=== PATIENT | male | born 2000 ===

== ENCOUNTER 2019-06-15 14:14 | Emergency (ER) | payer OTHER ==
--- NOTE | 2019-06-15 15:35 | UC ---
Lower Extremity/Ankle HPI - HPI Summary HPI Summary: Patient is a 18-year-old male presenting with right ankle pain after he states he stepped wrong and rolled and a pickup soccer game last night. Patient states he iced and applied an icy hot patch but the pain is not improved. States he has been walking on it which has also worsened pain. Notes swelling and minimal bruising. Notes tingling in his toes. Denies radiating pain. Denies pain at rest. Denies decreased range of motion and strength. Patient states he has sprained his ankle numerous times in the past. - History of Current Complaint Chief Complaint: UCLowerExtremity Stated Complaint: ANKLE INJURY Hx Obtained From: Patient Onset/Duration: Sudden Onset Severity Currently: Moderate Pain Intensity: 5 - Allergies/Home Medications Allergies/Adverse Reactions: Allergies Allergy/AdvReac Type Severity Reaction Status Date / Time No Known Allergies Allergy Verified 06/15/19 14:58 Home Medications: Home Medications Ibuprofen TAB* [Motrin TAB* 800 MG] 800 mg PO PRN 06/15/19 [History] Muscle Relaxer* PRN 06/15/19 [History] PMH/Surg Hx/FS Hx/Imm Hx Previously Healthy: Yes - Surgical History Surgical History: None - Family History Known Family History: Positive: Non-Contributory - Social History Alcohol Use: None Substance Use Type: None Smoking Status (MU): Never Smoked Tobacco Review of Systems All Other Systems Reviewed And Are Negative: No Skin: Positive: Bruising Respiratory: Positive: Negative Cardiovascular: Positive: Negative Gastrointestinal: Positive: Negative Neurovascular: Positive: Negative Musculoskeletal: Positive: Arthralgia, Edema. Negative: Calf Tenderness, Decreased ROM, Myalgia Neurological: Positive: Paresthesia. Negative: Numbness Physical Exam Triage Information Reviewed: Yes Appearance: Well-Appearing, No Pain Distress, Well-Nourished Vital Signs: Initial Vital Signs Temp 98.5 F 06/15/19 14:53 Pulse 88 06/15/19 14:53 Resp 16 06/15/19 14:53 BP 162/105 06/15/19 14:53 Pulse Ox 100 06/15/19 14:53 Vital Signs Reviewed: Yes Eyes: Positive: Conjunctiva Clear ENT: Positive: Hearing grossly normal Neck: Positive: Supple Respiratory: Positive: No respiratory distress Cardiovascular: Positive: Pulses Normal - Normal pedal pulses bilaterally, Brisk Capillary Refill. Negative: Distal Pulses Weak, Distal Pulses Absent Musculoskeletal Exam: Normal Musculoskeletal: Positive: Strength Intact, ROM Intact, Edema @ - Anterolateral right ankle Neurological Exam: Other - Sensation grossly intact Neurological: Positive: Alert Psychological: Positive: Age Appropriate Behavior Skin Exam: Normal - Anterolateral ecchymosis of right ankle Lower Extremity Course/Dx - Course Course Of Treatment: Patient declined ankle x-ray and agreed to continue the symptomatic treatment and follow up with pain persists. Instructed to go to ED if pain worsens or if he experiences the foot going cold and numb or is unable to bear weight. He received ice and an Krunal wrap here. Patient voiced understanding and agreed with treatment plan. - Differential Dx/Diagnosis Provider Diagnosis: Right ankle sprain Discharge ED - Sign-Out/Discharge Documenting (check all that apply): Patient Departure All imaging exams completed and their final reports reviewed: No Studies - Discharge Plan Condition: Stable Disposition: HOME Patient Education Materials: Ankle Sprain (ED) Referrals: Adriel Langford MD [Medical Doctor] - If Needed Additional Instructions: As discussed, it is likely your ankle is sprained. Rest, ice, elevate, and use compression with an krunal wrap to help relieve ankle pain. You may also use over the counter pain medications as directed for relief of pain. If pain does not begin to resolve within 1 week, follow up with orthopedics as listed below. Return or go to the emergency room if pain worsens, the foot becomes cold and numb, or you are not able to bear weight. - Billing Disposition and Condition Condition: STABLE Disposition: Home
== END 2019-06-15 15:45 | disposition home or self-care (01) ==
LOC: UCEAST 14:14
DX: S93.491A Sprain of other ligament of right ankle, initial encounter (principal); X50.9XXA Other and unspecified overexertion or strenuous movements or postures, initial encounter; Y93.66 Activity, soccer; Y92.9 Unspecified place or not applicable
CPT/HCPCS: 99202; G0463